=== PATIENT | female | born 1960 | race Two or more races ===

== ENCOUNTER → 2017-12-23 | Outpatient (CLI) | payer OTHER ==
[~2017-12-23] MED LIST: DEPO-MEDROL40 MG/ML IJ; DICLOFENAC POTA50 MG PO; NABUMETONE750 MG PO; TIZANIDINE HCL2 MG PO; TIZANIDINE HCL4 MG PO; TRAMADOL HCL50 MG PO; ZANTAC150 M3 PO
== END | disposition home or self-care (01) ==
LOC: NUTRICION 15:00 → PPHC 15:00
DX: R63.4 Abnormal weight loss (principal)

== ENCOUNTER 2018-11-25 04:55 | Emergency (ER) | payer OTHER ==
[~2018-11-25] VITALS: Ht 162.6 cm; Wt 92.5 kg
[~2018-11-25 04:55] MED LIST changes: +CYMBALTA30 MG PO
[2018-11-25] MEDS ORDERED: LISINOPRIL-HCT1 EAC2 (05:14)
[2018-12-02] MEDS ORDERED: ULTRACET PO (09:53)
[2018-12-02] MEDS ORDERED: MEDROLPACK PO (09:53)
== END 2018-11-25 10:35 | disposition home or self-care (01) ==
LOC: ER 04:55
DX: M54.5 Low back pain (principal)